=== PATIENT | male | born 1955 | race Caucasian/White ===

== ENCOUNTER 2019-08-13 20:36 | Emergency (ER) | payer OTHER ==
[2019-08-13 20:49] VITALS: BP 173/100; PULSE 72; TEMP 98.3; BMI 28.0
[2019-08-13] MEDS ORDERED: SULFAMETHOXAZOLE/TRIMETHOPRIM 800MG/160MG D.S. TABLET PO ONE (20:55)
[2019-08-13] MEDS ORDERED: valACYclovir HCL 1000 MG TABLET PO ONE (20:56)
[2019-08-13] MEDS ORDERED: SULFAMETHOXAZOLE/TRIMETHOPRIM 800MG/160MG D.S. TABLET ONE (21:01)
[2019-08-13] MEDS ORDERED: valACYclovir HCL 500 MG TABLET (FP) ONE (21:02)
--- NOTE | 2019-08-13 21:04 | PDOC ---
Documentation entered by Esperanza Maher SCRIBE, acting as scribe for Fide Ledsema MD. Fide Ledesma MD: This documentation has been prepared by the Gunnar tatum Aiswarya, SCRIBE, under my direction and personally reviewed by me in its entirety. I confirm that the documentation accurately reflects all work, treatment, procedures, and medical decision making performed by me. History of Present Illness - General Chief Complaint: Wound Stated Complaint: CELLULITIS Time Seen by Provider: 08/13/19 20:45 History Source: Patient Exam Limitations: No Limitations - History of Present Illness Initial Comments: 08/13/19 21:02 Assessment and plan: This is a 64-year-old male who comes in complaining of 3 days of a rash to his upper forehead area only on the left side. There is also some associated swelling of the forehead on the left but there is no involvement of the eye. Patient's rash is vesicular in nature most likely consistent with herpes zoster as it is unilateral. There may be also a cellulitic component to it so patient was started on Bactrim and valacyclovir. Patient discharged with follow-up with his primary care doctor. 08/13/19 21:13 The patient is a 64 year old female, with a significant PMH of HTN, who presents to the emergency department with a rash that began 4 days ago. The patient states he noticed a pimple to the left side of his forehead that progressively worsened to a vesicular rash . The patient endorses associated symptoms of pruritus and erythema. The patient denies any numbness or tingling. Denies any fever, chills, SOB or chest pain. Denies any tenderness to the left eye or face. PAST MEDICAL HISTORY: no significant history PAST SURGICAL HISTORY: no significant history FAMILY HISTORY: no pertinent history SOCIAL HISTORY: Pt lives with family and is employed. MEDICATIONS: reviewed ALLERGIES: As per nursing notes Adult ROS General: No fevers or chills, no weakness, no weight loss HEENT: No change in vision. No sore throat,. No ear pain CardioVascular: No chest pain or shortness of breath Respiratory:No cough, or wheezing. Neurologic: No headache, vertigo, dizziness or loss of consciousness Skin: +left forehead rash. Endocrine: no increased thirst or abnormal weight change Allergic: no skin or latex allergy All other systems reviewed and normal Basic PE GENERAL: The patient is awake, alert, and fully oriented, in no acute distress. HEAD: Normal with no signs of trauma. EYES: Pupils equal, round and reactive to light, extraocular movements intact, sclera anicteric, conjunctiva clear. EXTREMITIES: Normal range of motion, no edema. NEUROLOGICAL: Normal speech, normal gait. PSYCH: Normal mood, normal affect. SKIN: +left sided forehead upper scalp vesicular rash. Oozing, erythema, and edematous of the left forehead . No tenderness to the left eye or lower face. Past History - Past Medical History Allergies/Adverse Reactions: Allergies Allergy/AdvReac Type Severity Reaction Status Date / Time No Known Allergies Allergy Verified 12/07/14 14:25 Home Medications: Ambulatory Orders Amlodipine Besylate [Norvasc -] 7.5 mg PO DAILY 12/07/14 Hydroxychloroquine So4 [Plaquenil -] 200 mg PO DAILY 12/07/14 Sulfamethoxazole/Trimethoprim [Bactrim DS -] 1 tab PO BID #14 tablet 08/13/19 Valacyclovir HCl [Valtrex -] 1,000 mg PO TID #30 tablet 08/13/19 Cardiac Disorders: Yes COPD: No HTN: Yes Other medical history: AUTOIMMUNE - Psycho Social/Smoking Cessation Hx Smoking History: Unknown if ever smoked Have you smoked in the past 12 months: No Number of Cigarettes Smoked Daily: 0 Information on smoking cessation initiated: No Hx Alcohol Use: No Drug/Substance Use Hx: No Substance Use Type: None *Physical Exam - Vital Signs Last Vital Signs Temp Pulse Resp BP Pulse Ox 98.3 F 72 14 173/100 H 98 08/13/19 20:41 08/13/19 20:41 08/13/19 20:41 08/13/19 20:41 08/13/19 20:41 Discharge - Discharge Information Problems reviewed: Yes Clinical Impression/Diagnosis: Shingles rash Condition: Good Disposition: HOME - Admission No - Additional Discharge Information Prescriptions: Sulfamethoxazole/Trimethoprim [Bactrim DS -] 1 tab PO BID #14 tablet Valacyclovir HCl [Valtrex -] 1,000 mg PO TID #30 tablet - Follow up/Referral - Patient Discharge Instructions Additional Instructions: Take valacyclovir 1 tablet 3 times a day for 10 days this is for the shingles. Take Bactrim 1 tablet twice a day for 7 days this is for possible associated infection. Tylenol or Motrin as needed for pain. Return to the emergency department immediately with ANY new, persistent or worsening symptoms. Continue any medications as previously prescribed by your physician. You should follow up with your primary doctor as soon as possible regarding today's emergency department visit. . Please make sure your doctor reviews the results of your emergency evaluation. Thank you for coming to the Emergency Department today for your care. It was a pleasure to see you today. Please note that your evaluation is INCOMPLETE until you follow-up with your doctor. - Post Discharge Activity
== END 2019-08-13 21:06 | disposition home or self-care (01) ==
LOC: FER 20:36
DX: B02.8 Zoster with other complications (principal); I10 Essential (primary) hypertension
CPT/HCPCS: 99283-25